=== PATIENT | female | born 1995 | race Caucasian/White ===

== ENCOUNTER → 2018-09-03 | Outpatient (REF) | payer OTHER | LOC: M SFHCWAGY 09:36 | PROVIDERS: ATTEND Nurse Practitioner Family | DX: Z12.4 Encounter for screening for malignant neoplasm of cervix (principal) ==

== ENCOUNTER → 2020-01-07 | Outpatient (REF) | payer OTHER ==
[2020-01-07 20:39] LABS: CHLAMYDIA DNA AMPLIFICATION NEGATIVE (NEGATIVE); GC DNA AMPLIFICATION NEGATIVE (NEGATIVE)
== END ==
LOC: M SFHCWAGY 17:26
PROVIDERS: ATTEND Nurse Practitioner Family
DX: Z11.3 Encounter for screening for infections with a predominantly sexual mode of transmission (principal)